=== PATIENT | male | born 1995 | race Caucasian/White ===

== ENCOUNTER 2023-06-30 17:06 | Outpatient (CLI) | payer SELFPAY ==
--- NOTE | ~2023-06-30 | XR_ITS ---
EXAMINATION: XR foot RT min 3V DATE: 06/30/2023 17:52 INDICATION: Right foot swelling. TECHNIQUE: 3 views of right foot with weightbearing were obtained. COMPARISON: None. FINDINGS: Bone alignment normal. No fracture. Joint spaces are normal. IMPRESSION: 1. No fracture. Reviewed, dictated and finalized at location E. IMPRESSION: 1. No fracture.
[2023-06-30 18:20] LABS: Erythrocyte Sedimentation Rate 15 mm/hr (0-20)
[2023-06-30 18:48] LABS: Rheumatoid Factor < 12.0 IU/ML (<12)
[2023-06-30 18:55] LABS: CRP 1.3 mg/dL (<1.0); Uric Acid 8.7 mg/dL (3.5-8.5)
[2023-07-01 20:43] LABS: HLA B27 NEGATIVE (NEGATIVE)
== END 2023-06-30 17:07 | disposition home or self-care (01) ==
PROVIDERS: PCP Family Medicine; Visit Provider Podiatrist Foot & Ankle Surgery
DX: M79.89 Other specified soft tissue disorders (principal); M10.9 Gout, unspecified; M06.9 Rheumatoid arthritis, unspecified; M35.9 Systemic involvement of connective tissue, unspecified
CPT/HCPCS: 36415; 73630; 84550; 85652; 86038; 86140; 86430; 86812